=== PATIENT | male | born 1945 | race Caucasian/White ===

== ENCOUNTER → 2016-11-05 | Outpatient (CLI) | payer MEDICARE, OTHER ==
[~2016-11-05] MED LIST: ASPIRIN 81M81 MG/TA2 PO; CLARITIN 1010 MG/TAB PO; CO Q-1010 MG PO; LIPITOR 40MG TA40 MG PO; MULTIPLE VITAMI1 CAP PO; PEPCID 20MG TAB20 MG PO; PRILOTC; PRINIVIL5 MG PO; TENORMIN 2525 MG/TAB PO; VITAMIN C500 MG PO; VITAMIN D32000 IU PO
== END ==
LOC: COL.RAD 09:23
DX: C61 Malignant neoplasm of prostate (principal); Z95.1 Presence of aortocoronary bypass graft
CPT/HCPCS: A9503

== ENCOUNTER 2017-05-28 11:00 | Outpatient (RCR) | payer MEDICARE, OTHER | END 2017-05-29 09:00 | LOC: MKS.ESL.PT 11:00 | DX: Z01.818 Encounter for other preprocedural examination (principal); M25.512 Pain in left shoulder | CPT/HCPCS: G8978-GP; G8979-GP ==

== ENCOUNTER 2017-09-02 11:00 | Outpatient (RCR) | payer MEDICARE, OTHER | END 2017-09-08 | disposition home or self-care (01) | LOC: MKS.ESL.PT | DX: Z47.89 Encounter for other orthopedic aftercare (principal); Z98.890 Other specified postprocedural states; M25.532 Pain in left wrist | CPT/HCPCS: G8978-GP; G8979-GP ==

== ENCOUNTER 2017-10-28 11:00 | Outpatient (RCR) | payer MEDICARE, OTHER | END 2017-10-29 09:07 | disposition home or self-care (01) | LOC: MKS.ESL.PT 11:00 | DX: Z47.89 Encounter for other orthopedic aftercare (principal); Z98.890 Other specified postprocedural states | CPT/HCPCS: G8978-GP; G8979-GP; G8980-GP ==

== ENCOUNTER 2021-12-27 09:43 | Day surgery (SDC) | payer MEDICARE, OTHER ==
[~2021-12-27] VITALS: Ht 172.7 cm; Wt 90.6 kg
[2021-12-27] VITALS (13 sets, daily range): BP systolic 114–140; BP diastolic 66–81; PULSE 59–68; TEMP 97.7
[~2021-12-27 09:43] MED LIST changes: +ASPIRIN 32325 MG/TA1 PO; -ASPIRIN 81M81 MG/TA2 PO; -CO Q-1010 MG PO; -MULTIPLE VITAMI1 CAP PO; +MULTIPLE VITAMI1 TA5 PO; +THE MEDICINE S200 M2 PO; -VITAMIN C500 MG PO; +VITAMIN D31000 I1 PO; -VITAMIN D32000 IU PO; +VITAMINC1000TA PO
[2021-12-27 10:35] LABS: HEMATOCRIT 43.6 % (42.0-52.0); MEAN CELL VOLUME 97 fl (80.0-100.0); MEAN CORPUSCULAR HEMOGLOBIN 36 pg (27-31); MEAN CORPUSCULAR HGB CONC 37 g/dl (33.0-37.0); PLATELET COUNT 162 K/mm3 (130-400); REDCELL DISTRIBUTION WIDTH-CV 13.2 % (11.5-14.5)
[2021-12-27 10:42] LABS: INR 1.2 (0.8-3.0); PROTHROMBIN TIME 13.3 SECONDS (9.7-12.8)
[2021-12-27 10:44] LABS: PARTIAL THROMBOPLASTIN TIME 40.5 SECONDS (26.0-37.0)
[2021-12-27 10:55] LABS: CALCIUM 9.5 mg/dL (8.4-10.2); CREATININE, serum 0.94 mg/dL (0.72-1.25); POTASSIUM 4.6 mmol/L (3.5-4.5)
[2021-12-27] MEDS ORDERED: SINGULAIR 110 MG/TAB PO (11:09)
--- NOTE | 2021-12-27 12:28 | NUR ---
See merge for all medication, assessment, intervention, and vital sign times.
--- NOTE | 2021-12-27 13:28 | NUR ---
Pt is back from sleep lab technician, bs report from Nguyễn HAYWOOD. Pt is awake and alert, relaxed, pwd, sinus quynh on monitor. Rt groin site is soft, with cms intact distal, dressing clean and dry. Pt and updated on poc, lunch ordered. call light in [facility].
--- NOTE | 2021-12-27 14:00 | NUR ---
RECOVERY GOING WELL, PT WITH HOB 30DEG AT THIS TIME TO FACILITATE LUNCH. NO PROBLEMS OBSERVED AT RT GROIN SITE, CMS INTACT DISTAL, SITE SOFT, DRESSING CLEAN AND DRY. AT BS. BOTH DENY NEEDS AT THIS TIME.
--- NOTE | 2021-12-27 17:15 | NUR ---
Bedrest complete. Pt is up and ambulatory in nurses station to bathroom with steady gait, no dizziness. rt groin site remains soft without evidence of bleeding. pt was medicated for headache earlier with telephone order for tylenol from Dr. Rosa. Headache is improved at this time. I have spent timein room reviewing dc/fu instructions with pt and . They both deny questions at this time. IV dc'd with cath intact, dressing applied. Pt escorted to exit via wheelchair. is pt's transporation home this evening.
== END 2021-12-27 17:37 | disposition home or self-care (01) ==
LOC: COL.CAR 09:43
PROVIDERS: Internal Medicine Cardiovascular Disease
DX: R07.9 Chest pain, unspecified (principal); I25.10 Atherosclerotic heart disease of native coronary artery without angina pectoris
CPT/HCPCS: C1760; C1769; C1894; J2250; J3010

== ENCOUNTER → 2022-01-21 | Outpatient (CLI) | payer MEDICARE, OTHER ==
[~2022-01-21] MED LIST changes: +SINGULAIR 110 MG/TAB PO
== END ==
LOC: COL.RAD 10:34
DX: Z13.89 Encounter for screening for other disorder (principal); R97.21 Rising PSA following treatment for malignant neoplasm of prostate
CPT/HCPCS: Q9967

== ENCOUNTER 2024-03-01 05:23 | Day surgery (SDC) | payer MEDICARE, OTHER ==
[2024-03-01] VITALS (12 sets, daily range): BP systolic 114–133; BP diastolic 54–77; PULSE 65–80; TEMP 97.4–98
[~2024-03-01] VITALS: Ht 172.7 cm; Wt 84.7 kg
[2024-03-01] MEDS ORDERED: DIOVAN 40MG40 MG PO (06:27)
--- NOTE | 2024-03-01 06:45 | NUR ---
CALL PLACED TO [facility] FOR ANESTHESIA CONSENT AND FLUID ORDERS. SEE ORDERS, CONSENT FOR GENERAL ANESTHESIA & MAJOR/MINOR NERVE BLOCK WITH SEDATION AND FOR LACTATED RINGERS PER PROVIDER.
[2024-03-01] MEDS ORDERED: Tranexamic Acid 1,000 MG/10 ML VIAL ONE ×2 (06:49→09:35)
[2024-03-01] MEDS ORDERED: fentaNYL 50 MCG/ML 2 ML VIAL ONE (06:50)
[2024-03-01] MEDS ORDERED: Midazolam 2 MG/2 ML VIAL ONE (06:51)
[2024-03-01] MEDS ORDERED: dexAMETHasone 10 MG/ML VIAL ONE (06:52)
[2024-03-01] MEDS ORDERED: LR 1,000 ML IV ONE (07:00)
[2024-03-01] MEDS ORDERED: HYDROmorphone 1 MG/1 ML SYRINGE [PACU/SDC ONLY] IV PRN (07:15)
[2024-03-01] MEDS ORDERED: Ketorolac 15 MG/ML VIAL IV PRN (07:15)
[2024-03-01] MEDS ORDERED: fentaNYL 50 MCG/ML 1 ML SYRINGE/VIAL [PACU/SDC ONLY] IV PRN (07:15)
[2024-03-01] MEDS ORDERED: Meperidine 50 MG/ML 1 ML VIAL IV PRN (07:15)
[2024-03-01] MEDS ORDERED: Ondansetron 4 MG/2 ML VIAL IV PRN ×2 (07:15→10:15)
[2024-03-01] MEDS ORDERED: Thrombin Human (Recombinant) 5,000 UNITS VIAL TP ONE (08:38)
[2024-03-01] MEDS ORDERED: Gentamicin 80 MG/50 ML IV.SOLN IR ONE (08:38)
[2024-03-01] MEDS ORDERED: ePHEDrine 50 MG/ML VIAL ONE (08:50)
[2024-03-01] MEDS ORDERED: Acetaminophen 500 MG TAB PO SCH (10:15)
[2024-03-01] MEDS ORDERED: Magnes Hydrox (MOM) 80 MG/ML 30 ML CUP PO PRN (10:15)
[2024-03-01] MEDS ORDERED: NS 1,000 ML IV SCH (10:15)
[2024-03-01] MEDS ORDERED: Morphine 4 MG/ML VIAL IV PRN (10:15)
[2024-03-01] MEDS ORDERED: Acetaminophen 500 MG TAB PO PRN (10:15)
[2024-03-01] MEDS ORDERED: Mag/Al Hydrox/Simeth Susp 30 ML CUP PO PRN (10:15)
[2024-03-01] MEDS ORDERED: oxyCODONE 5 MG TAB PO PRN (10:15)
[2024-03-01] MEDS ORDERED: Naloxone 0.4 MG/ML VIAL IV PRN (10:15)
[2024-03-01] MEDS ORDERED: Bisacodyl 5 MG TAB PO PRN (10:15)
--- NOTE | 2024-03-01 10:50 | NUR ---
PATIENT BROUGHT TO FLOOR AT APPROXIMATELY 1045. POST OP VITALS RUNNING AND WNL. POST OP FLUIDS INFUSING INTO IV IN RIGHT HAND. DRESSING CDI WITH CORTNEY WRAP. HEMOVAC TO COMPRESSION. PATIENT REPORTS PAIN IS NONEXISTENT. PATIENT TOLERATING SIPS OF WATER. NO FURTHER NEEDS. CALL LIGHT IN REACH.
[2024-03-01] MEDS ORDERED: Ketorolac 15 MG/ML VIAL IV SCH (12:00)
[2024-03-01] MEDS ORDERED: ceFAZolin 2 G in Water For Injection,Sterile 20 ML IV SCH (15:00)
--- NOTE | 2024-03-01 15:45 | NUR ---
PATIENT ABLE TO VOID, TOLERATING PO AND HAS ADEQUATE PO INTAKE. IV INT. PATIENT DENIES ANY NAUSEA. CALL LIGHT IN REACH.
--- NOTE | 2024-03-01 17:37 | NUR ---
PATIENT REPORTS PAIN IS MILD, DENIES NEED FOR NARCOTICS. SCHEDULED TYLENOL AND TORADOL ADMINISTERED. HEMOVAC WITH 60ML DRAINAGE THIS SHIFT. CALL LIGHT IN REACH.
--- NOTE | 2024-03-01 18:07 | NUR ---
NO INCENTIVE SPIROMETER IN THE ROOM.
--- NOTE | 2024-03-01 19:29 | NUR ---
report received from carol oleary. pt resting in recliner with at bedside. pt reports 2/10 left knee pain but refuses PRN. call light in reach. all needs met at this time.
--- NOTE | 2024-03-01 20:14 | NUR ---
shift assessment complete, see documentation. pt reporting 2/10 left knee pain and requesting ice. new ice bag placed. pt tolerated pain meds well. call light in reach. all needs met at this time.
[2024-03-01] MEDS ORDERED: Ascorbic Acid 500 MG TAB PO SCH (21:00)
[2024-03-01] MEDS ORDERED: Montelukast 10 MG TAB PO SCH (21:00)
[2024-03-01] MEDS ORDERED: Atenolol 25 MG TAB PO SCH (21:00)
[2024-03-01] MEDS ORDERED: Atorvastatin 40 MG TAB PO SCH (21:00)
[2024-03-01] MEDS ORDERED: Sennosides/Docusate 8.6-50 MG TAB PO SCH (21:00)
[2024-03-02 03:39] VITALS: BP 117/55; PULSE 82; TEMP 97.7
[2024-03-02 04:54] VITALS: BP_SYST 117
[2024-03-02] MEDS ORDERED: CEPHALEXIN500 M1 PO (06:25)
[2024-03-02] MEDS ORDERED: NORCO 325 MG-51 TAB PO (06:25)
[2024-03-02] MEDS ORDERED: ULTRAM 50MG TAB50 MG PO (06:26)
[2024-03-02] MEDS ORDERED: Omeprazole 20 MG **** subs to Pantoprazole 40 MG PO SCH (07:00)
[2024-03-02 07:28] VITALS: BP 113/61; PULSE 73; TEMP 98
--- NOTE | 2024-03-02 07:45 | NUR ---
pt a&ox4 sitting up in recliner eating breakfast. vss. pt rates pain a 2/10 in the left knee. dressing is cdi. teds to ble. INT to right ac patent. meds given and assessment complete. pt denies needs at this time. call light in reach.
[2024-03-02] MEDS ORDERED: Magnes Hydrox (MOM) 80 MG/ML 30 ML CUP PO SCH (09:00)
[2024-03-02 09:04] VITALS: BP_SYST 113
--- NOTE | 2024-03-02 09:21 | NUR ---
Elevator Operator Service met with patient to discuss discharge planning. Patient lives in [place] with his , Janae (ph#[phone]) and sees Dr. Borja for primary care. Patient gets his medications from [facility] on [address] with no difficulties and does not normally use any DME, however does have a walker available for recovery. Patient is normally independent with ADLS, including driving and has outpatient PT set up at [facility] starting tomorrow. SW faxed discharge orders. Discharge Plan: Home, Outpatient OP
--- NOTE | 2024-03-02 11:35 | NUR ---
discharge instructions given to pt, all questions answered. printed rx scripts copied and original sent with pt. pt escorted to personal vehicle for discharge.
--- NOTE | 2024-03-02 14:35 | NUR ---
D: [employer] Software Engineer stopped by room on rounds. A: Pt was resting and content. Pt has no needs right now. 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 [employer] Software Engineer will follow up as needed.
[2024-03-05] MEDS ORDERED: Celecoxib 200 MG CAP PO SCH (21:00)
== END 2024-03-02 11:36 | disposition home or self-care (01) ==
LOC: SDCO 05:23 → SURG 05:23 → SDCO 07:30 → SURG 10:45 → SDCO 03-02 11:36 → SURG 03-02 11:36
DX: M17.12 Unilateral primary osteoarthritis, left knee (principal)
CPT/HCPCS: OP; A9284; C1713; C1776; J0665; J0690; J1100; J1580; J1885; J2250; J2704; J2795; J3010; J7120